=== PATIENT | female | born 1975 | race Caucasian/White ===

== ENCOUNTER → 2017-04-06 | Outpatient (CLI) | payer BC ==
[~2017-04-06] MED LIST: IBUP-103 PO
== END | disposition home or self-care (01) ==
LOC: C.PAPS 16:34
PROVIDERS: ATTEND Obstetrics & Gynecology
DX: Z01.419 Encounter for gynecological examination (general) (routine) without abnormal findings (principal)

== ENCOUNTER 2018-08-22 08:13 | Observation (INO) ==
--- NOTE | 2018-08-18 15:48 | Anesthesiology Consultation ---
Date of Service August 18, 2018 Assessment & Plan (1) Encounter for pre-operative examination: Patient had pre-op labs drawn at [facility] draw site at [facility] office on 08/18. As of 1430 on 08/19, labs not appearing in [facility] system. I spoke to the patient--she has access to her patient portal and may be able to view the lab results there when they are completed. Per anesthesia guidelines patient does not need pre-op labs, but surgeon ordered CBC and BMP. Please check with patient if labs available to view on portal AM DOS before drawing labs unnecessarily. Chart Review Chart Review: Acceptable Risk for Surgery and Patient NOT seen in Pre Admission Testing ASA ASA2 Proposed Anesthesia Anesthesia Type: General Risk / Benefits Reviewed With: PT / POA / Parent / Guardian, Accepts Plan and Informed Consent Obtained NPO Date Last Intake of Fluids: 08/21/18 Time Last Intake of Fluids: 23:30 Date Last Intake of Solids: 08/21/18 Time Last Intake of Solids: 22:30 History Surgery Operation Date: 08/22/18 13:00 Proposed Procedures p Right Breast Lumpectomy with Needle Localization and with Right [place] Lymph Node Biopsy (injection only) - Rene Shelby MD, FACS Height/Weight Height: 1.73 m Weight: 189 kg Allergies Allergy/AdvReac Type Severity Reaction Status Date / Time No Known Allergies Allergy Unknown Verified 08/22/18 09:10 Medications Home Medications Medication Instructions Recorded Confirmed Last Taken sertraline [Zoloft] 25 mg PO QAM 08/18/18 08/22/18 08/22/18 07:00 ibuprofen [Advil] 400 - 600 mg PO QID PRN 08/19/18 08/22/18 08/21/18 19:00 Active Medications Generic Name Dose Route Start Last Admin Trade Name Freq PRN Reason Stop Dose Admin Lactated Ringer's 1,000 mls @ 15 mls/hr 08/22/18 06:00 08/22/18 09:22 Lr IV 08/23/18 05:59 15 mls/hr .Q24H HOLLIS Administration Past Medical History Medical History Ductal carcinoma in situ (DCIS) of breast Anxiety Degenerative disc disease Past Surgical History Surgical History History of bunionectomy LT History of esophagogastroduodenoscopy (EGD) History of lumbar spinal fusion L5-S1; HARDWARE PRESENT History of tonsillectomy and adenoidectomy Past Anesthesia History No Hx of Anesthesia Complications and No Family Hx of Anesthesia Complications History of PONV No Motion Sickness Screening History of Motion Sickness: No Social History Smoking Status: Current every day smoker Smoking cigarettes per day: 1/2 ppd x 20 years Do You Dip or Chew Tobacco: No Hx Alcohol Use: Yes Alcohol type: wine alcohol intake frequency: a few times a month Hx Substance Use: No Exercise / Class Metabolic Activity II 4-5 Yardwork/Stairs/Walk up hill Physical Exam Vital Signs Last Vital Signs Temp 36.8 C 08/22/18 09:12 Pulse 61 08/22/18 09:12 Resp 18 08/22/18 09:12 BP 124/70 08/22/18 09:12 Pulse Ox 96 08/22/18 09:12 ENMT Mouth: no TMJ abnormality and no TMJ clicking Thyromental Distance: > or= 3.5 Finger Breadths Mallampati Class: II Neck normal visual inspection; neck extension not limited Respiratory Auscultation: lungs clear to auscultation bilaterally Cardiovascular Rate/Rhythm: regular rate and regular rhythm Musculoskeletal Spine: normal cervical ROM and no pain with cervical ROM Psychiatric Orientation: alert and oriented x 3 Testing Chest X-Ray Date: 06/07/18 Findings: + NAD Laboratory Results 08/22/18 09:00 POC Ur Test NEG 08/19/18 WBC: 8.9 HGB: 14.5 HCT: 45.1 PLT: 312 Na: 136 K: 4.6 Cl: 105 CO2: 24 BUN: 14 Creat: 0.77 Gluc: 122
[~2018-08-22 08:13] MED LIST changes: -IBUP-103 PO; +LR 15ML/HR IV SCH
[2018-08-22] MEDS ORDERED: ATROPINE SULFATE 0.1 MG/ML 10ML SYR IV PRN (09:15)
[2018-08-22] MEDS ORDERED: PROMETHAZINE HCL 12.5 MG in SODIUM CHLORIDE 0.9% 50 ML IV PRN ×2 (09:15→15:34)
[2018-08-22] MEDS ORDERED: PHENYLEPHRINE 100MCG/ML 5ML SYR IV PRN (09:15)
[2018-08-22] MEDS ORDERED: ePHEDrine sulfate 50 MG/ML AMP IV PRN (09:15)
[2018-08-22] MEDS ORDERED: HYDROmorphone INJ 1 MG/ML SYRINGE IV PRN (09:15)
[2018-08-22] MEDS ORDERED: ONDANSETRON INJ 2 MG/ML 2 ML VIAL IV PRN ×2 (09:15→15:34)
[2018-08-22] MEDS ORDERED: CEFAZOLIN 2000MG 2,000 MG/15 ML SYR IV ONE (10:05)
[2018-08-22] MEDS ORDERED: CEFAZOLIN 2,000 MG/15 ML IV PUSH IV ONE (10:14)
--- NOTE | 2018-08-22 11:01 | Nuclear Medicine Report ---
LYMPHOSCINTIGRAPHY CLINICAL HISTORY: Right breast cancer. PROCEDURE: Using standard sterile technique, 4 intradermal and one deep injection of 0.5 mCi of Lymph oseek was placed in the right breast. The patient tolerated the procedure well. There were no immedia te complications. The patient was subsequently transported to the surgical suite. No imaging was obta ined at the referring physician's request. IMPRESSION: Injection of 0.5 mCi of Lymphoseek in the right periareolar breast. Electronically signed by: Dionte Verma M.D. 08/22/2018 11:00 AM
[2018-08-22] MEDS ORDERED: fentaNYL citrate 100 MCG/2 ML VIAL ONE ×2 (12:04→13:26)
[2018-08-22] MEDS ORDERED: PROPOFOL IV EMULSION 10 MG/ML 20 ML VIAL IV ONE (12:04)
[2018-08-22] MEDS ORDERED: LIDOCAINE HCL 2% 2 ML VIAL/AMP(20MG/ML) INFIL ONE (12:04)
[2018-08-22] MEDS ORDERED: MIDAZOLAM HCL 1 MG/ML 2ML VIAL ONE (12:04)
[2018-08-22] MEDS ORDERED: METHYLENE BLUE 0.5% 10 ML VIAL ONE (12:26)
[2018-08-22] MEDS ORDERED: BUPIVACAINE 0.5 % 5 MG/1 ML MPF 30ML VIAL ONE (12:26)
[2018-08-22] MEDS ORDERED: DEXAMETHASONE SOD INJ 4 MG/ML VIAL ONE (12:57)
[2018-08-22] MEDS ORDERED: ONDANSETRON INJ 2 MG/ML 2 ML VIAL ONE (12:57)
--- NOTE | 2018-08-22 13:57 | Operative Report ---
Post Operative Report Pre & Post Diagnosis Operation Date: 08/22/18 13:00 Pre-Op Diagnosis: DCIS Right Breast W/HOSP LOC & NM INJ Post-Op Diagnosis: DCIS Right Breast W/HOSP LOC & NM INJ Procedure Operation Date: 08/22/18 13:00 Actual Procedures p Right Breast Lumpectomy with Needle Localization and with Right [place] Lymph Node Biopsy (injection only)(Right) - Rene Shelby MD, FACS Surgeon Rene Shelby MD, FACS Fiber Glass Worker Mackenzie Grewal Estimated Blood Loss 10 Findings Consistent with Post-Op Diagnosis Specimens Right breast tissue and Lymph nodes Description of Procedure see dictation I attest to the content of the Intraoperative Record and any orders documented therein. Any exceptions are noted below.
[2018-08-22] MEDS ORDERED: ACETAMINOPHEN 1,000 MG/100 ML VIAL IV ONE (14:05)
[2018-08-22] MEDS: fentaNYL citrate 100 MCG/2 ML VIAL IV PRN ×3 (14:22→14:46)
--- NOTE | 2018-08-22 14:27 | Operative Report ---
DATE OF OPERATION: 08/22/2018 NAME OF OPERATION: Right lumpectomy with sentinel lymph node biopsy. PREOPERATIVE DIAGNOSIS: Right breast ductal carcinoma in situ. POSTOPERATIVE DIAGNOSIS: Right breast ductal carcinoma in situ. STAFF SURGEON: Rene Shelby MD SEDIMENTATIONIST: Arnold Grewal PA-C ANESTHESIA: General. DESCRIPTION OF PROCEDURE: The patient was brought in the operating room and placed on the operating table in supine position. Her right chest and axilla were prepped and draped in usual fashion. The right arm was extended onto an arm board. She had a wire placed in the right lateral breast. Using 0.5% plain Marcaine, skin and subcutaneous tissue in the axilla were anesthetized. Incision made in the right axilla carrying dissection down deep into the axilla, identifying the sentinel lymph node and an additional node. [place] lymph node was sent for frozen section. The additional node was sent for permanent section. As a note, my employment assistant helped with prepping, draping, excision of the breast and axillary tissue and closure of the wounds. During the frozen section of the right axillary lymph node, lumpectomy was performed making incision around the wire, carrying dissection down deep into the axilla down to the muscle, marking the tissue with the wire lateral, short silk suture medial/deep and long silk inferior. At this point, additional superior and inferior tissue were taken. Both were marked with a short silk suture medial, long silk suture lateral and methylene blue new margin. Clips were placed at the area of the tumor. The initial tissue was placed into the [place]axit[place], clip was in the center of the tissue. After appropriate hemostasis, the sentinel lymph node was negative on frozen section. Both incisions were closed with a deep tissue reapproximated using 2-0 plain suture and then the skin reapproximated using 5-0 Prolene suture. Dressings applied and the patient transferred to the recovery room in stable condition. I attest to the content of the Intraoperative Record and any orders documented therein. Any exception s are noted below.
--- NOTE | 2018-08-22 14:54 | Anesthesiology Progress Note ---
Date of Service August 22, 2018 Anesthesia Post Procedure Vital Signs Vital Signs: Temp Pulse Pulse Resp BP Pulse Ox 08/22/18 14:45 82 13 153/83 H 100 08/22/18 14:35 81 12 137/84 100 08/22/18 14:25 88 15 143/88 H 100 08/22/18 14:15 36.3 C L 96 H 18 149/86 H 100 08/22/18 09:12 36.8 C 61 18 124/70 96 Pain Intensity Right Breast: Pain Intensity: 6 Notes Mental Status: alert / awake / arousable Patient Amnestic to Procedure: Yes Nausea / Vomiting: adequately controlled Pain: adequately controlled Airway Patency, RR, SpO2: stable & adequate BP & HR: stable & adequate Hydration State: stable & adequate Anesthetic Complications: no major complications apparent
--- NOTE | 2018-08-22 15:10 | Mammography Report ---
NEEDLE LOCALIZATION RIGHT BREAST: 08/22/2018 CLINICAL HISTORY: Recent stereotactic biopsy of right upper outer quadrant calcifications which yield ed DCIS. The patient presents for preoperative needle localization. PROCEDURE DESCRIPTION: With imaging guidance, aseptic technique, and 1% lidocaine as the local anesth etic, the biopsy clip in the right upper outer quadrant posteriorly was localized with a 5 cm Bhatt 2 needle. The path of approach was lateral. The biopsy clip is located along the distal portion of the wire at the level of the juan. The needle was removed. The patient tolerated the procedure wit hout complication. COMPARISON: Comparison is made to exams dated: 08/10/2018 mammogram, 08/10/2018 ultrasound, 07/07/2018 mammogram, 07/01/2018 ultrasound, 07/01/2018 mammogram, and 07/07/2018 stereotactic biopsy - [facility]. IMPRESSION: NEEDLE LOCALIZATION Needle localization of the dumbbell-shaped biopsy clip in the right upper outer quadrant posteriorly, at the site of prior stereotactic biopsy which yielded DCIS. Katlin Kelly M.D. ah/:08/22/2018 08:39:40 Attending Technologist: Eliana Mercado, RT(R)(M), [facility] Field Marketing Specialist: Mini Patiño RT(R)(M), [facility]
--- NOTE | 2018-08-22 15:10 | Mammography Report ---
SPECIMEN RIGHT BREAST: 08/22/2018 CLINICAL HISTORY: Status post right breast surgical excision. COMPARISON: Comparison is made to exams dated: 08/22/2018 localization, 08/10/2018 mammogram, 08/10/2018 ultrasound biopsy, and 08/10/2018 ultrasound biopsy - [facility]. Findings: A radiograph was performed of the right breast surgical specimen. The localized biopsy cli p and intact needle localization wire are present centrally within the specimen. Results were relaye d to Dr. Shelby over the telephone. IMPRESSION: SPECIMEN The imaged specimen contains the preoperativelylocalized biopsy clip. Katlin Kelly M.D. ah/:08/22/2018 13:37:43 Lace Finisher: RT Katheryn(Roxy)(M), [facility]
[2018-08-22] MEDS ORDERED: MoRPHine SULFATE 2 MG/ML CARP IV PRN (15:34)
[2018-08-22] MEDS ORDERED: ACETAMINOPHEN 325 MG TAB PO PRN (15:34)
[2018-08-22] MEDS ORDERED: MoRPHine SULFATE 4 MG/ML 1 ML CARP\\VIAL IV PRN (15:34)
[2018-08-22] MEDS ORDERED: IBUPROFEN 600 MG TAB PO PRN (15:34)
[2018-08-22] MEDS ORDERED: HYDROCODONE/ACETAMOPHEN 5/325MG TAB PO PRN (15:34)
[2018-08-22] MEDS ORDERED: SODIUM CHLORIDE 0.9% 1000ML 1,000 ML IV SCH (15:34)
[2018-08-22] MEDS ORDERED: PROMETHAZINE HCL 25 MG in SODIUM CHLORIDE 0.9% 50 ML IV PRN (15:34)
[2018-08-22] MEDS: HYDROCODONE/ACETAMOPHEN 5/325MG TAB PO PRN ×2 (16:11→20:20)
[2018-08-22] MEDS: CEFAZOLIN 1000MG 1,000 MG/7.5 ML SYR IV SCH (20:21)
[2018-08-23] MEDS: HYDROCODONE/ACETAMOPHEN 5/325MG TAB PO PRN ×2 (00:51→06:44)
[2018-08-23] MEDS: CEFAZOLIN 1000MG 1,000 MG/7.5 ML SYR IV SCH (03:57)
[2018-08-23 06:20] VITALS: O2SAT 97
--- NOTE | 2018-08-23 06:27 | Discharge Summary ---
Date of Service August 23, 2018 Discharge Data Allergies Allergy/AdvReac Type Severity Reaction Status Date / Time No Known Allergies Allergy Unknown Verified 08/22/18 09:10 Consultations 08/22/18 15:34 Consult Case Management - Discharge Planning Routine Procedures Performed Operation Date: 08/22/18 13:00 Actual Procedures p Right Breast Lumpectomy with Needle Localization and with Right [place] Lymph Node Biopsy (injection only)(Right) - Rene Shelby MD, FACS Hospital Course (1) Ductal carcinoma in situ (DCIS) of breast: Discharge Plan Discharge Items Patient Disposition: Home - Self-Care Reason For Visit: DCIS Right Breast W/HOSP LOC & NM INJ Discharge Diagnosis: DCIS Rt breast Discharge Goals: Decrease discomfort, Improve disease control and Improve functi on Activity: As commented below Activity Comment: light activity for 4 weeks Lifting: No more than 25 pounds Bathing Comment: may shower Sexual Activity: When tolerated Exercise Comment: wait 4 weeks for strenuous exercise Driving/Machine Use: Resume 1 day after discharge Non-emergency contact: Primary Care Provider and Surgeon Call non-emergency contact if: your pain is not controlled, your temperature is above 101 and your wound has increased drainage Follow-up/Referrals: Uziel Roca MD [Primary Care Provider] - Diet: Regular Addtl Provider Instructions: SPECIAL CARE INSTRUCTIONS: * Cover incisions and change daily for comfort/drainage. * May use ibuprofen for pain as tolerated. * Expect some swelling and bruising. Call your doctor if: * Temperature above 101 degrees * Pain not relieved by pain medicine ordered * There is increased drainage or redness from any incision * You have any unanswered questions or concerns [phone]. FOLLOW UP VISIT: If not already scheduled, please call the office for a follow-up visit. OFFICE PHONE NUMBER: Dr. Shelby Office for next week- some suture removal Prescriptions: New hydrocodone-acetaminophen [D[place]ois] 5-325 mg tablet 1 - 2 tab PO Q6H Qty: 30 RF: 0 Continued sertraline [Zoloft] 25 mg Tablet 25 mg PO QAM RF: 0 ibuprofen [Advil] 200 mg Tablet 400 - 600 mg PO QID PRN (Reason: Pain) RF: 0 Stand-Alone Forms: [facility], [facility] Discharge Orders: Discharge Order (Routine); Ordered 08/23/18 Ordered By: Rene Shelby Admission Data Admit Date/Time: 08/22/18 13:57 Attending Provider: Rene Shelby Admit Provider: Rene Shelby Primary Care Provider: Uziel Roca Service: Surgical Services
[2018-08-23 07:05] VITALS: BP 112/59; PULSE 62; TEMP 98.1
--- NOTE | 2018-08-23 08:04 | Anesthesiology Progress Note ---
Date of Service August 23, 2018 Anesthesia Post Procedure Vital Signs Vital Signs: Temp Pulse Pulse Resp BP Pulse Ox 08/23/18 07:18 36.7 C 80 62 18 112/59 L 97 08/23/18 07:03 36.7 C 62 18 112/59 L 97 08/23/18 03:55 36.8 C 58 L 16 109/66 97 08/22/18 23:05 37.0 C 80 20 116/71 98 08/22/18 19:11 36.9 C 75 20 112/73 96 08/22/18 19:00 37.2 C 66 18 124/73 97 08/22/18 16:40 88 18 123/79 08/22/18 15:55 18 132/83 100 08/22/18 15:15 81 19 142/84 H 99 08/22/18 15:05 78 13 141/86 H 99 08/22/18 14:55 36.2 C L 80 14 146/84 H 100 08/22/18 14:45 82 13 153/83 H 100 08/22/18 14:35 81 12 137/84 100 08/22/18 14:25 88 15 143/88 H 100 08/22/18 14:15 36.3 C L 96 H 18 149/86 H 100 08/22/18 09:12 36.8 C 61 18 124/70 96 Pain Intensity Right Breast: Pain Intensity: 5 Notes Mental Status: alert / awake / arousable and participated in evaluation Patient Amnestic to Procedure: Yes Nausea / Vomiting: adequately controlled Pain: adequately controlled Airway Patency, RR, SpO2: stable & adequate BP & HR: stable & adequate Hydration State: stable & adequate Anesthetic Complications: no major complications apparent and Pt Satisfied with anesthetic care
[2018-08-23] MEDS ORDERED: SERTRALINE HCL 50 MG TABLET PO SCH (09:00)
--- NOTE | 2018-08-23 09:20 | Discharge Summary ---
PRINCIPAL DIAGNOSIS: Ductal carcinoma in situ of the right breast. HISTORY OF PRESENT ILLNESS: The patient is a 42-year-old female with a diagnosis of ductal carcinoma in situ of the right breast. HOSPITAL COURSE: The patient was brought into the hospital on 08/22/2018 where she underwent a right breast lumpectomy with sentinel lymph node biopsy. She had undergone wire localization and injection of the right breast prior to surgery. She tolerated surgery well. She has done well overnight and is felt stable for discharge home today to be followed in the Surgical Clinic next week.
== END 2018-08-23 10:54 | disposition home or self-care (01) ==
LOC: 3N 08:13 → ASU 08:13